=== PATIENT | female | born 1965 | race Caucasian/White ===

== ENCOUNTER 2020-01-20 18:53 | Outpatient (NON) | payer BC, SELFPAY | END 2020-01-20 18:54 | PROVIDERS: Visit Provider Nurse Practitioner | DX: L02.91 Cutaneous abscess, unspecified (principal) | CPT/HCPCS: 87070; 87075; 87076; 87205 ==

== ENCOUNTER → 2020-04-13 12:41 | Outpatient (REF) | payer BC, SELFPAY | LOC: ANHLAB 12:41 | PROVIDERS: Visit Provider Nurse Practitioner | DX: L72.0 Epidermal cyst (principal) | CPT/HCPCS: 88304 ==

== ENCOUNTER → 2020-07-13 16:41 | Outpatient (CLI) | payer BC, SELFPAY ==
--- NOTE | ~2020-07-13 | MM_ITS ---
EXAMINATION: MM screening [facility] BI w red HISTORY: Screening TECHNIQUE: Craniocaudal and mediolateral oblique 3-D tomosynthesis images were obtained and synthetic 2-D images were generated. CAD analysis was submitted and interpreted. COMPARISON: Comparison to multiple prior studies sequentially, with oldest reviewed study dated 08/2013. BREAST PARENCHYMAL COMPOSITION: There are scattered areas of fibroglandular density. FINDINGS: There is no evidence of suspicious mass, calcification, or architectural distortion to sugg est malignancy in either breast. There has been no suspicious interval change. IMPRESSION: 1. No mammographic evidence of malignancy. 2. Recommend routine screening mammography in one year. BI-RADS Category 1: Negative Reviewed, dictated and finalized at location A.
== END ==
PROVIDERS: PCP Physician Assistant; Visit Provider Obstetrics & Gynecology Gynecology
DX: Z12.31 Encounter for screening mammogram for malignant neoplasm of breast (principal)
CPT/HCPCS: 77063; 77067

== ENCOUNTER → 2021-09-19 16:35 | Outpatient (CLI) | payer BC, SELFPAY ==
--- NOTE | ~2021-09-19 | MM_ITS ---
EXAMINATION: MM screening [facility] BI w red HISTORY: Screening TECHNIQUE: Craniocaudal and mediolateral oblique 3-D tomosynthesis images were obtained and synthetic 2-D images were generated. CAD analysis was submitted and interpreted. COMPARISON: Comparison to multiple prior studies sequentially, with oldest reviewed study dated 06/23. BREAST PARENCHYMAL COMPOSITION: There are scattered areas of fibroglandular density. FINDINGS: There is no evidence of suspicious mass, calcification, or architectural distortion to sugg est malignancy in either breast. There has been no suspicious interval change. IMPRESSION: 1. No mammographic evidence of malignancy. 2. Recommend routine screening mammography in one year. BI-RADS Category 1: Negative Reviewed, dictated and finalized at location A.
== END ==
PROVIDERS: PCP Physician Assistant; Visit Provider Obstetrics & Gynecology Gynecology
DX: Z12.31 Encounter for screening mammogram for malignant neoplasm of breast (principal)
CPT/HCPCS: 77063; 77067

== ENCOUNTER 2022-10-23 08:25 | Outpatient (CLI) | payer BC, SELFPAY ==
--- NOTE | ~2022-10-23 | MM_ITS ---
EXAMINATION: MM screening [facility] BI w red HISTORY: Screening mammogram TECHNIQUE: Craniocaudal and mediolateral oblique 3-D tomosynthesis images were obtained and synthetic 2-D images were generated. CAD analysis was submitted and interpreted. COMPARISON: 09/19/2021, 07/13/2020, 01/09/2019 bilateral screening mammogram examinations BREAST PARENCHYMAL COMPOSITION: There are scattered areas of fibroglandular density. FINDINGS: There is no evidence of suspicious mass, calcification, or architectural distortion to sugg est malignancy in either breast. There has been no suspicious interval change. IMPRESSION: 1. No mammographic evidence of malignancy. 2. Recommend routine screening mammography in one year. BI-RADS Category 1: Negative........ Reviewed, dictated and finalized at location A.
--- NOTE | ~2022-10-23 | DEXA_ITS ---
Bone Density Report Name: PAMELA WILL Age: 57 Sex: Female Ethnicity: White Date of : 1965 Indication: postmenopausal; screening for osteoporosis; height loss; Referring Provider: Radha Enriquez Study: Bone densitometry was performed. Exam Date: October 23, 2022 Accession number: [id number] Bone Density: Region BMD T-score Z-score Classification AP Spine(L1-L4) 0.920 -1.2 0.0 Osteopenia Femoral Neck (Left) 0.829 -0.2 0.9 Normal Total Hip (Left) 0.861 -0.7 0.0 Normal Femoral Neck (Right) 0.775 -0.7 0.4 Normal Total Hip (Right) 0.881 -0.5 0.2 Normal Femoral Neck Mean 0.802 -0.4 0.7 Normal Total Hip Mean 0.871 -0.6 0.1 Normal World Health Organization criteria for BMD impression classify patients as: Normal (T-score at or above -1.0), Osteopenia (T-score between -1.0 and -2.5), or Osteoporosis (T-score at or below -2.5). 10-year Fracture Risk(1): Major Osteoporotic Fracture 5.7% Hip Fracture 0.2% Reported Risk Factors: [place] (), Neck BMD=0.775, BMI=26.9 (1) FRAX(R) Version 3.08. Fracture probability calculated for an untreated patient. Fracture probability may be lower if the patient has received treatment. Clinical Information Provided by Patient: Has used the following medications: Vitamin D Patient maximum height was 70 Menopause Age: 57 Drinks caffeinated beverages Onset of menses at age 16 Number of children 0 Impression: The patient has low bone mass, based on the Total Spine T-score. Discussion: BONE DENSITY IS LOW AT ONE OR MORE SKELETAL SITES. This patient's lowest T-score is low at one or more skeletal sites. It meets the World Health Organization's (WHO) criteria for ?low bone mass? (T-score between -1.0 and -2.5). The patient's 10-year risk of fracture as calculated by FRAX is less than the threshold where pharmacological therapy is recommended by the National Osteoporosis Foundation (NOF). However, all treatment decisions require clinical judgment and consideration of individual patient factors, including patient preferences, comorbidities, previous drug use, risk factors not captured in the FRAX model (e.g., frailty, falls, vitamin D deficiency, increased bone turnover, interval significant decline in bone density) and possible under or overestimation of fracture risk by FRAX. The patient should follow a healthful lifestyle (good nutrition with adequate calcium and vitamin D, and appropriate weight-bearing exercise). Follow-Up: Consider repeating this study in 2 to 3 years to reassess this patient's status, or sooner if there is some new clinical indication. Reported by: Dr. Floyd Olguin on 10/23/2022 9:11:00 AM. Reviewed, dictated and finalized at location A.
== END 2022-10-23 08:26 | disposition home or self-care (01) ==
LOC: CHSIMG 08:26
PROVIDERS: PCP Physician Assistant; Visit Provider Obstetrics & Gynecology Gynecology
DX: Z12.31 Encounter for screening mammogram for malignant neoplasm of breast (principal); Z78.0 Asymptomatic menopausal state; M85.88 Other specified disorders of bone density and structure, other site
CPT/HCPCS: 77063; 77067; 77080

== ENCOUNTER 2023-04-11 18:19 | Outpatient (CLI) | payer BC, SELFPAY ==
--- NOTE | ~2023-04-11 | XR_ITS ---
EXAMINATION: XR foot RT min 3V DATE: 04/11/2023 18:45 INDICATION: Lateral right foot pain. TECHNIQUE: 4 views of right foot were obtained. COMPARISON: None. FINDINGS: There is moderate hallux valgus. There is an oblique fracture of neck of fifth metatarsal. The distal fracture fragment demonstrates 5 degrees plantar medial angulation. There is mild osteoart hritis of first metatarsophalangeal joint. There is an enthesophyte at plantar aspect of calcaneal tu berosity. IMPRESSION: 1. Oblique fracture of neck of fifth metatarsal. Reviewed, dictated and finalized at location E. 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
== END 2023-04-11 18:20 | disposition home or self-care (01) ==
LOC: CHSIMG 18:24
PROVIDERS: PCP Physician Assistant; Visit Provider Physician Assistant
DX: S92.351A Displaced fracture of fifth metatarsal bone, right foot, initial encounter for closed fracture (principal)
CPT/HCPCS: 73630

== ENCOUNTER 2023-12-21 12:21 | Outpatient (CLI) | payer BC, SELFPAY ==
--- NOTE | ~2023-12-21 | MM_ITS ---
EXAMINATION: MM screening [facility] BI w red HISTORY: Screening TECHNIQUE: Craniocaudal and mediolateral oblique 3-D tomosynthesis images were obtained and synthetic 2-D images were generated. CAD analysis was submitted and interpreted. COMPARISON: Comparison to multiple prior studies sequentially, with oldest reviewed study dated 10/18. BREAST PARENCHYMAL COMPOSITION: Not Dense: The breasts are almost entirely fatty. FINDINGS: There is no evidence of suspicious mass, calcification, or architectural distortion to sugg est malignancy in either breast. There has been no suspicious interval change. IMPRESSION: 1. No mammographic evidence of malignancy. 2. Recommend routine screening mammography in one year. BI-RADS Category 1: Negative Reviewed, dictated and finalized at location B.
== END 2023-12-21 12:22 | disposition home or self-care (01) ==
LOC: CHSIMG 12:23
PROVIDERS: PCP Physician Assistant; Visit Provider Obstetrics & Gynecology Gynecology
DX: Z12.31 Encounter for screening mammogram for malignant neoplasm of breast (principal)
CPT/HCPCS: 77063; 77067

== ENCOUNTER 2025-01-05 14:00 | Outpatient (CLI) | payer BC, SELFPAY ==
--- NOTE | ~2025-01-05 | MM_ITS ---
EXAMINATION: MM screening shelton BI w red HISTORY: Screening TECHNIQUE: Craniocaudal and mediolateral oblique 3-D tomosynthesis images were obtained and synthetic 2-D images were generated. CAD analysis was submitted and interpreted. COMPARISON: 09/19/2021 BREAST PARENCHYMAL COMPOSITION: There are scattered areas of fibroglandular density. FINDINGS: There is no evidence of suspicious mass, calcification, or architectural distortion to suggest malignancy. There has been no suspicious interval change. IMPRESSION: 1. No mammographic evidence of malignancy. Recommend routine screening mammography in one year. BI-RADS Category 2: Benign finding(s) Reviewed, dictated and finalized at location Q. IMPRESSION: 1. No mammographic evidence of malignancy. Recommend routine screening mammogra phy in one year. BI-RADS Category 2: Benign finding(s)
--- OUTSIDE RECORDS SUMMARY | 2025-01-05 15:11 | XMS_ITS | Data Portability ---
Author Organization [place] [facility], Main Office Address [address] [place] [address] Care Team Providers Care Piping Manager Name Role Phone COURTNEY KRAUSE Primary Care Provider [phone] COURTNEY KRAUSE Referring Provider [phone] Assessment Encounter Date Assessment Date Assessment LastModified by Organization Details LastModified Time 05/30/2023 05/30/2023 58-year-old female presents for evaluation of her left knee. She reports pain in her knee which began last month. She denies any injuries, but says that she was wearing a boot for a fracture in her right foot, and walking in that for a while caused her left knee to have pain. she also recently fitted for orthotics, and feels like that aggravated her symptoms as well. She has pain with movement and walking. She feels like it there is swelling, stiffness, and also clicking. The pain is located over the anterior aspect of the knee. She went to urgent care and got a course of oral steroids, but otherwise has not had any treatments. She currently rates her pain 6/10. Review of systems per patient questionnaire Physical exam: She is antalgic gait favoring the left side. Tenderness palpation over the anterior knee and also medially. Range of motion 0-120. 2+ effusion. Negative Libby's. Stable Dayo, posterior drawer, varus and valgus stress. X-rays of the knee were obtained and reviewed, demonstrating preserved joint space with very small peripheral osteophytes For her knee pain, we will begin with a course of conservative management with meloxicam, Voltaren topically, and physical therapy. She is inquiring about a cortisone injection because she has a trip coming up next month. We discussed that we would try conservative management 1st and can consider cortisone as a next step if she fails to improve. If that is the case, we can see her back in June prior to her trip to discuss a cortisone injection. She is in agreement with the plan. [email or web address] Not available 05/30/2023 21:00:33 06/19/2023 06/19/2023 58-year-old female presents for re-evaluation of her left knee. She reports pain in her knee which began last month after wearing a boot for a fracture in her right foot. At her last appointment we order physical therapy and meloxicam. She states today that the knee feels like it is getting better but she is still experiencing pain and stiffness. She has a trip coming up and is worried about the amount of walking she will be doing. Physical exam: Nonantalgic gait. Tenderness palpation over the anterior knee. Range of motion 0-140. 1+ effusion. Negative Libby's. Stable Dayo, posterior drawer, varus and valgus stress. Today we discussed the risks and benefits of a cortisone injection. She elected to proceed with the injection today. She plans to complete her last few therapy sessions. We discussed continuing the exercises at home once she is done. We can see her back as needed for pain. [email or web address] Not available 06/19/2023 09:14:09 Plan of Treatment Reminders Order Date Submit Date Provider Last Modified By Organization Details Last Modified Time Details Appointments None recorded. Lab lipid panel, serum 2022 024 [email or web address] [facility], 2022 [address], [place], [address], 18:34:15 CBC w/ auto diff 2022 024 [email or web address] [facility], 2022 Lisa [address], [place], [address], 4 18:34:15 CMP, serum or plasma 2022 024 [email or web address] [facility], 2022 Lisa [address], [place], [address], 4 18:34:15 HbA1c (hemoglobin A1c), blood 2022 024 [email or web address] [facility], 2022 [address], [place], [address], 4 18:34:15 TSH + free T4, serum 2022 024 [email or web address] [facility], 2022 Lisa [address], [address], [place], [address], 4 18:34:14 lipid panel, serum 2022 023 [facility], 2022 Lisa Carolina, [address], [place], [address], 3 08:30:48 TSH + free T4, serum 2022 023 [facility], 2022 Lisa Carolina, [address], [place], [address], 3 08:30:48 Referral physical therapist referral 2023 024 [facility], [address], [place], [address], 4 10:50:30 Procedures injection/a spiration joint/bursa (PROC) - in office procedure, administere d by provider 2023 024 [email or web address] In-Office Order, Internal Use Only DO Not Attach Compendium DO Not Attach Compendium, Do Not Delete/merge, [id number] 09:13:05 Surgeries None recorded. Imaging None recorded. Medication Orders Kenalog 10 mg/mL suspension for injection 2023 024 [email or web address] [facility] [address], [place], [address], 4 11:16:08 Marcaine (PF) 0.5 % (5 mg/mL) injection solution 2023 024 [email or web address] [facility] [address] [place], [address], 4 11:16:08 Mobic 15 mg tablet 2023 024 [email or web address] [facility] [address] [place], [address], 4 21:00:34 Patient TargetsNo targets recorded. Patient InstructionsNo instructions recorded. Reason for Referral Physical Therapist Referral for Pain of left knee joint Referring Physician: Torsten Osman, Orthopedic Surgery, Encounter Date: 05/30/2023 Results Created Date Observation Date Name Description Value Unit Range Abnormal Flag Note LastModifiedBy Organization Detail LastModifiedTime 12/27/1910/23/2022 MAMMO , scree josué, digit al, bilat eral No observ ation record ed. [email or web address] [facility] [address] [place], [address], 12/27/2022 15:28:47 04/12/19 24 04/12/2023 XR, foot, 3 or more view No observ ation record ed. [email or web address] [facility] [address] [place], [address], 04/12/2023 10:40:58 05/16/19 24 05/15/2023 XR, foot, 3 or more view No observ ation record ed. [email or web address] [facility] [address] [place], [address], 06/25/2023 12:49:56 Result Notes None recorded. Problems Name Problem SNOMED Code Status Onset Date Resolution Date Notes Provider Name and Address Organization Details Recorded Time Benign essential hypertensi on 7691089 Active Not Available [facility] 3 06:04:09 Body mass index 25-29 - overweight 278979359 Active Not Available [facility] 3 06:04:09 Lateral epicondyli tis 218115447 Active Not Available [facility] 3 06:04:09 Wasp sting 201486595 Active Not Available [facility] 3 06:04:09 Vitamin D deficiency 07846225 Active Not Available [facility] 3 06:04:10 Pain of hip region 04727830 Active Not Available [facility] 3 06:04:10 Hyperlipid emia 02318863 Active Not Available [facility] 3 06:04:10 Diabetes mellitus screening Active 2021 Not Available [facility] 3 06:04:09 Long-term drug therapy Active 2021 Not Available [facility] 3 06:04:09 Adult health examinatio n Active 2021 Not Available [facility] 3 06:04:09 Overactive urinary bladder 846580807 Active 2021 Not Available [facility] 3 06:04:10 Acute sinusitis 98903922 Active 2021 Not Available [facility] 3 06:04:09 Pain of bilateral hands 1212451563336 9109 Active 2021 Not Available [facility] 3 06:04:09 Carpal tunnel syndrome of right wrist 8086921175700 08 Active 2021 Not Available [facility] 3 06:04:10 Mixed hyperlipid emia 904420208 Active 2022 KEVIN Shelton [address], [address], [place], [address] , [employer] 3 17:32:18 Thyroid function tests abnormal 742650188 Active 2022 KEVIN Shelton [address], [address], [place], [address] , [employer] [facility] [employer] 3 17:32:36 Weight gain 7422038 Active 2022 KEVIN Shelton [address], [place], [address] , [facility] [employer] [facility] 3 16:53:11 Injury of right foot 351282925 Active 2023 KEVIN Shelton [address] [facility], [place] [address], [place], [address] , [facility] [employer] [facility] 4 12:34:56 Closed fracture of fifth metatarsal bone 26752792 Active 2023 KEVIN Shelton [address] [facility], [place] [address], [place], [address] , [facility] [employer] [facility] 4 10:42:18 Pain of left knee joint 5033671384553 07 Active 2023 Becky Valdivia, ROCKY L null, [facility] [employer] [facility] 4 15:25:58 Problem Notes None recorded. Procedures Surgical History Date Name Laterality Status Provider Name and Address Organization Details Recorded Time Ortho - Cortisone Injection completed Kira Rivera NP [address] [facility], [place] [address], [place], [address], [facility] [employer] [facility] [employer] [facility] 06/19/2023 09:14:53 Imaging Results None recorded. Procedure Notes None recorded. Medical Equipment None Reported. Allergies No known drug allergies Medications Name Sig Start Date Stop Date Status Note LastModified by Organization Details LastModified Time celecoxib 200 mg capsule TAKE 1 CAPSULE BY MOUTH ONCE DAILY active Not Available Not Available No t Available Augmentin 875 mg-125 mg tablet Take 1 tablet every 12 hours by oral route with meals. active Not Available Not Available No t Available ibuprofen 800 mg tablet Take 1 tablet twice a day by oral route as needed. 05/29 completed Not Available Not Available Not Available fluconazol e 150 mg tablet TAKE ONE TABLET BY MOUTH A ONE-TIME DOSE. MAY REPEAT IF NEEDED. 05/29 completed Not Available Not Available Not Available medroxypro gesterone 2.5 mg tablet TAKE 1 TABLET BY MOUTH ONCE DAILY active Not Available Not Available No t Available meloxicam 15 mg tablet TAKE 1 TABLET BY MOUTH ONCE DAILY active Not Available Not Available No t Available phentermin e 37.5 mg tablet TAKE 1 TABLET BY MOUTH ONCE DAILY IN THE MORNING 05/29 completed Not Available Not Available Not Available ciprofloxa sheri 500 mg tablet Take 1 tablet every 12 hours by oral route. active Not Available Not Available No t Available sulfametho xazole 800 mg-trimeth oprim 160 mg tablet Take 1 tablet every 12 hours by oral route. 01/30 completed Not Available Not Available Not Available amoxicilli n 875 mg tablet TAKE 1 TABLET BY MOUTH EVERY 12 HOURS active Not Available Not Available No t Available Kenalog 10 mg/mL suspension for injection Take 1 mL by injectio n route. 2023 active [facility]: [phone] Not Available Not Available Not Available cephalexin 500 mg capsule active Not Available Not Available Not Available lisinopril 10 mg tablet active Not Available Not Available Not Available hydrochlor othiazide 12.5 mg capsule TAKE 1 CAPSULE BY MOUTH ONCE DAILY active Not Available Not Available No t Available oxybutynin chloride ER 5 mg tablet,ext ended release 24 hr Take 1 tablet every day by oral route. 05/29 completed pt doesnt take Not Available Not Available Not Available norgestima te-ethinyl estradiol 0.18mg/0.2 15mg/0.25m g-0.035mg( 28)tablet active Not Available Not Available No t Available montelukas t 10 mg tablet Take 1 tablet every day by oral route. 12/14 completed Not Available Not Available Not Available estradiol 0.5 mg tablet TAKE 1 TABLET BY MOUTH ONCE DAILY active Not Available Not Available No t Available ergocalcif terrie (vitamin D2) 1,250 mcg (50,000 unit) capsule TAKE ONE CAPSULE BY MOUTH THREE TIMES A MONTH active Not Available Not Available No t Available methylpred nisolone 4 mg tablets in a dose pack TAKE BY MOUTH DIRECTED ON INSIDE OF PACKAGE 05/29 completed Not Available Not Available Not Available Marcaine (PF) 0.5 % (5 mg/mL) injection solution Take 4 mL by injectio n route. 2023 active Not Available Not Available Not Avai lable nitrofuran toin monohydrat e/macrocry stals 100 mg capsule Take 1 capsule every 12 hours by oral route. 04/22 completed Not Available Not Available Not Available Vesicare 5 mg tablet Take 1 tablet every day by oral route. 10/28 completed Not Available Not Available Not Available BD Ultra-Fine Short Pen Needle 31 gauge x 5/16 USE 1 ONCE DAILY DIRECTED 05/29 completed Not Available Not Available Not Available Voltaren 1 % topical gel APPLY 2 GRAM TO THE AFFECTED AREA(S) BY TOPICAL ROUTE 4 TIMES PER DAY PRN pain active Not Available Not Available No t Available Myrbetriq 25 mg tablet,ext ended release Take 1 tablet every day by oral route. 10/25 completed Not Available Not Available Not Available Estarylla 0.25 mg-0.035 mg tablet 08/15 completed Not Available Not Available Not Available Saxenda 3 mg/0.5 mL (18 mg/3 mL) subcutaneo us pen injector INJECT 0.6 MG SUB-Q DAILY ON WEEK 1, INJECT 1.2 MG SUB-Q DAILY ON WEEK 2, THEN INJECT 1.8 MG SUB-Q DAILY ON WEEK 5, THEN 3 MG SUB-Q DAILY ONWARD 12/18 completed Not Available Not Available Not Available Fluvirin (PF) 45 mcg (15 mcg x 3)/0.5 mL intramuscu lar syringe ADM 0.5ML IM UTD 05/24 completed Not Available Not Available Not Available Belviq XR 20 mg tablet,ext ended release Take 1 tablet every day by oral route. 08/31 completed Not Available Not Available Not Available Flucelvax Quad (PF) 60 mcg (15 mcg x 4)/0.5 mL IM syringe 05/05 completed Not Available Not Available Not Available Wegovy 1.7 mg/0.75 mL subcutaneo us pen injector INJECT 1.7 MG EVERY WEEK SUB-Q DIRECTED . 05/29 completed Not Available Not Available Not Available Wegovy 0.25 mg/0.5 mL subcutaneo us pen injector INJECT 0.25 MG SUB-Q ONCE WEEKLY. 12/18 completed Not Available Not Available Not Available Wegovy 0.5 mg/0.5 mL subcutaneo us pen injector Inject 0.5 mg every week by subcutan eous route as directed . 12/18 completed Not Available Not Available Not Available Flowflex COVID-19 Antigen Home Test kit 10/24 completed Not Available Not Available Not Available Zepbound 2.5 mg/0.5 mL subcutaneo us pen injector INJECT 2.5 MG SUB-Q EVERY WEEK. active Not Available Not Available No t Available Vitals Date Recorded Body height Body mass index (BMI) Body weight Provider Name and Address Organization Details Last Updated DateTime 05/30/2023 175.26 cm 26.6 kg/m2 97918.63 g Becky Valdivia [facility] [employer] [facility] 05/30/2023 15:23:19 Date Recorded Body height Body mass index (BMI) Body weight Body temperature Heart rate Oxygen saturation Oxygen saturation in Arterial blood by Pulse oximetry Systolic And Diastolic Provider Name and Address Organization Details Last Updated DateTime 175.26 cm 27.3 kg/m2 67934.5 9 g 97.8 [degF] 77 /min 98 % 98 % 122/72 mm[Hg] Deborah Alvarez RN [facility] 17:10:06 Date Recorded Body height Body mass index (BMI) Body weight Pain severity - 0-10 verbal numeric rating [Score] - Reported Provider Name and Address Organization Details Last Updated DateTime 06/19/2023 175.26 cm 17.7 kg/m2 66639.08 g 3 UMESH [place] [employer] [facility] 06/19/2023 08:57:35 Date Recorded Body mass index (BMI) Provider Name and Address Organization Details Last Updated DateTime 12/18/2022 26.3 kg/m2 KEVIN Shelton [address] [place] [address], [address], [facility] 12/24/2022 01:11:02 Date Recorded Body height Body weight Body temperature Heart rate Oxygen saturation Oxygen saturation in Arterial blood by Pulse oximetry Systolic And Diastolic Provider Name and Address Organization Details Last Updated DateTime 175.26 cm 97769.4 4 g 97.3 [degF] 88 /min 97 % 97 % 110/62 mm[Hg] Deborah Alvarez RN [facility] Dheere Bolo [facility] 17:09:36 Date Recorded Body height Oxygen saturation Oxygen saturation in Arterial blood by Pulse oximetry Heart rate Body temperature Body weight Systolic And Diastolic Provider Name and Address Organization Details Last Updated DateTime 2 175.26 cm 99 % 99 % 83 /min 97 [degF] 50601 g 118/72 mm[Hg] Not Available [employer] 3 06:01:28 Social History Question Answer Notes LastModified by Organizat ion Details LastModified Time Tobacco Smoking Status Never Smoker UMESH Prince null, [place] [facility] [place] [employer] [facility] 12/18/2022 17:05:33 What Is Your Level Of Caffeine Consumption? Occasional [id number] Information not available 05/24/2022 In The 14 Days Before Symptom Onset, Have You Had Close Contact With A Laboratory-confirm ed COVID-19 While That Case Was Ill? No [email or web address] Information n ot available 12/18/2022 In The 14 Days Before Symptom Onset, Have You Had Close Contact With A Person Who Is Under Investigation For COVID-19 While That Person Was Ill? No [email or web address] Information not available 12/18/2022 What Type Of Diet Are You Following? REGULAR [id number] Information not available 05/24/2022 What Is The Highest Grade Or Level Of School You Have Completed Or The Highest Degree You Have Received? [id number] [email or web address] Information not available 12/18/2022 Have There Been Any Changes To Your Family Or Social Situation? No [email or web address] Information no t available 12/18/2022 Do You Use Insect Repellent Routinely? No [email or web address] Information not available 12/18/2022 What Was The Date Of Your Most Recent Tobacco Screening? 06/19/2023 Information not available 06/19/2023 Have You Ever Been Counseled For Unhealthy Alcohol Use? No [email or web address] Information not available 12/18/2022 What Is Your Relationship Status? Single [id number] Information not available 05/24/2022 Do You Use Your Seat Belt Or Car Seat Routinely? Yes [email or web address] Information not available 12/18/2022 Do You Have Smoke And Carbon Monoxide Detectors In Your Home? Yes [email or web address] Information not available 12/18/2022 Do You Use Sunscreen Routinely? Yes [email or web address] Information not available 12/18/2022 Has Tobacco Cessation Counseling Been Provided? No [email or web address] Information not available 12/18/2022 Have You Recently Traveled Abroad? No Information not available 12/18/2022 Do You Have Any Dietary Restrictions? No Information not available 12/18/2022 Sex: Unknown Functional Status Question Answer Note LastModified by Organizat ion Details LastModified Time Do you use any illicit or recreational drugs? No [email or web address] Information not available 12/18/2022 Do you or have you ever used any other forms of tobacco or nicotine? No Information not available 12/18/2022 What is your level of alcohol consumption? Occasional [id number] Information not available 05/24/2022 Are you currently employed? 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 Moderate [id number] Information not available 05/24/2022 Mental Status None recorded. Family History Relationship Description Onset Age of this Age Resolved Age Notes LastModified by Organization Details LastModified Time Mother Neoplasm of appendix [email or web address] Not available 2023 15:06:57 Mother Hypertensive disorder [email or web address] Not available 08/2023 15:25:29 Father Aneurysm 70 [email or web address] Not availabl e 05/30/2023 15:06:57 Father Family history of stroke [email or web address] Not available 08/2023 15:25:15 Father Hypertensive disorder [email or web address] Not available 08/2023 15:25:29 Father Myocardial infarction 70 [id number] Not available 05/24/2022 05:57:08 Medical History Condition Response HEADACHES/MIGRAINES Y URINARY/BLADDER/KIDNEY PROBLEMS Y HEARTBURN / REFLUX Y HYPERTENSION Y HIGH CHOLESTEROL / HYPERLIPIDEMIA Y Gynecological History Statement/Question Response Menses Monthly N Date of Last Pap 05/27/2018 Date of Last Mammogram 10/24/2017 Current Control Method None Date of LMP 08/24/2020 Sexually Active? Y Obstetrics History GPAL:G 0 P 0 0 0 0 Immunizations Vaccine Type Date Status Note Provider Nam e and Address Organization Details Recorded Time influenza, unspecified formulation 0 completed Not Available [facility] 05/24/2022 06:09:35 influenza, unspecified formulation 2 completed Not Available [facility] 05/24/2022 06:09:35 influenza, unspecified formulation 6 completed Not Available [facility] 05/24/2022 06:09:35 influenza, unspecified formulation 5 completed Not Available [facility] 05/24/2022 06:09:35 Past Encounters Encounter ID Performer Location Encounter Start Date Encounter Closed Date Diagnosis/Indication Diagnosis SNOMED-CT Code Diagnosis ICD10 Code Diagnosis IMO Codes Diagnosis Note [id number] KEVIN Shelton [facility] [place] [address] [place] [address] 10/21/2020 00:00:00 10/21/2020 18:19:13 [id number] KEVIN Shelton [facility] [place] [address] [place] [address] 04/25/2021 00:00:00 04/25/2021 16:58:12 [id number] Tyshawn Guardado MD [facility] [place] [address] [place] [address] 10/24/2021 00:00:00 11/23/2021 19:24:28 [id number] KEVIN Shelton [facility] [place] [address] [place] [address] 02/22/2022 00:00:00 02/22/2022 13:45:12 [id number] KEVIN Shelton [facility] [place] [address] [place] [address] 06/12/2022 17:03:34 06/12/2022 17:39:53 Benign essential hypertension 2143530 I10 stable on hctz 12.5mg daily and lisinopril 10mg daily. Mixed hyperlipidemia 267 172504 E78.2 diet control, due for repeat labs in july Overactive urinary bladder 954550707 N32.81 pt has not been taking the oxybutynin that was given prior Long-term drug therapy 312280594 Z79.899 Thyroid fu nction tests abnormal 953023407 R94.6 following TSH levels. repeat labs in july KEVIN Shelton [facility] [place] [address] [place] [address] 12/18/2022 17:05:23 12/18/2022 17:38:08 Benign essential hypertension 3961641 I10 stable on hctz 12.5mg daily and lisinopril 10mg daily. Mixed hyperlipidemia 267 236262 E78.2 diet control, due for repeat labs in may Thyroid fu nction tests abnormal 762459677 R94.6 following TSH levels. repeat labs in may Overactive urinary bladder 282945985 N32.81 pt has not been taking the oxybutynin that was given prior Long-term drug therapy 081617950 Z79.899 Adult heal th examination 821867708 Z00.01 well exam completed Diabetes m ellitus screening 361783826 Z13.1 [id number] Torsten Osman MD [facility] [place] [address] [place] [address] 05/30/2023 15:04:54 05/30/2023 15:58:19 Pain of left knee joint 4678660453 52263 M25.470 [id number] Torsten Osman MD [facility] [place] [address] [place] [address] 06/19/2023 08:54:03 06/19/2023 09:34:36 Pain of left knee joint 3587873627 69246 M25.562 Health Concerns Section Related Observation LastModified by Organization Detai ls LastModified Time None Recorded Concern Status LastModified by Organization Details LastModified Time None Recorded Advance Directives Directive None Recorded Payers Insurance Date Sequence Insurance Name Policy Number Policy Chinchilla Covered Member ID Chinchilla Member ID Guarantor Name 05/30/2023 [facility] Kylah Hawkins SELF SELF Kylah Hawkins 06/25/2023 1 [place] [id number] R Kylah Hawkins [id number] Kylah Hawkins Notes Date Note Type Note Provider Name and Address Organization Details Recorded Time 3 text/html HyperlipidemiaReported by PatientHPIFor control, patient reportsusually well controlled,improving, andat goal. For compliance, patient reportscompliant,compliant with diet, andexercises. For complications, patient reportsno coronary artery disease,no peripheral artery disease, andno cardiovascular disease. HypothyroidismReported by PatientHPIFor onset/timing, patient reportsbetter. For context/risk, patient reportsnormal thyroid levels,no history of head or neck radiation during childhood,no history of thyroid disease,no history of hypothyroidism,no history of hyperthyroidism, andno excess iron exposure. For exercise, patient reportsgets exercise. For associated symptoms, patient reportsno cold intolerance,no heat intolerance,no weight loss,no weight gain,no double vision,no dry eyes,no hoarseness,no difficulty swallowing,no neck masses,no deepening of the voice,no fast heart rate,no increased blood pressure,no palpitations,no chest pain,no chest tightess or pressure,no constipation,no diarrhea,no vomiting,no decreased appetite,no loose stools,no irregular menstrual periods,no excessive sweating,no joint pain,no numbness,no tingling of the hands or feet,no dry skin,no tremor,no nervousness,no anxiety,no depression,no fatigue,no sleep difficulties,no skin changes, andno hair changes. KEVIN Shelton [address] [place] [address], [id number], [place] [facility] [employer] 06/23/2022 10:43:50 3 text/html HyperlipidemiaReported by PatientHPIFor control, patient reportsusually well controlled,improving, andat goal. For compliance, patient reportscompliant,compliant with diet, andexercises. For complications, patient reportsno coronary artery disease,no peripheral artery disease, andno cardiovascular disease. HypothyroidismReported by PatientHPIFor onset/timing, patient reportsbetter. For context/risk, patient reportsnormal thyroid levels,no history of head or neck radiation during childhood,no history of thyroid disease,no history of hypothyroidism,no history of hyperthyroidism, andno excess iron exposure. For exercise, patient reportsgets exercise. For associated symptoms, patient reportsno cold intolerance,no heat intolerance,no weight loss,no weight gain,no double vision,no dry eyes,no hoarseness,no difficulty swallowing,no neck masses,no deepening of the voice,no fast heart rate,no increased blood pressure,no palpitations,no chest pain,no chest tightess or pressure,no constipation,no diarrhea,no vomiting,no decreased appetite,no loose stools,no irregular menstrual periods,no excessive sweating,no joint pain,no numbness,no tingling of the hands or feet,no dry skin,no tremor,no nervousness,no anxiety,no depression,no fatigue,no sleep difficulties,no skin changes, andno hair changes. wellness KEVIN Shelton [address], [place] [address], [place], [address], [facility] 12/24/2022 01:12:06 OBGyn Episode No OBEpisode recorded.
--- OUTSIDE RECORDS SUMMARY | 2025-01-05 15:11 | XMS_ITS | Patient Health Record ---
Author Organization [facility] Address [address] [place], [place] [id number] Support Name Relationship Address Phone TIARA WILL Emergency Contact Unknown PAMELA WILL Guarantor Unknown [phone] Reason For Referral No Information Plan Of Treatment No Information Insurance Providers Payer Name Payer Address Payer Phone Subscriber Number Group Number Insured Name Patient Relationship to Insured Coverage Start Date Coverage End Date [facility] ([facility]) ATTN CLAIMS [address] [place] [address] [id number] PAMELA WILL Self - patient is the insured
--- OUTSIDE RECORDS SUMMARY | 2025-01-05 15:11 | XMS_ITS | Clinical Summary ---
Author Organization [facility] Address [address] [place] [address] Care Team Providers Care Foreign Language Instructor Name Role Phone Mojgan Rick Primary Care Pr ovider Source Comments [facility] [employer]non-owned Affiliates and Associated Physician Practices is amultiple site organization consisting of ambulatory clinics and hospital sitesin [place], [place], [place] and [place]. This disclosure is being madepursuant to the Care Everywhere program and may not contain all information available regarding this patient. Last updated 17.[facility] [employer] Allergies No known active allergies Medications * Be aware that medications may not be up to date on this document. Alwaysverify current medications with the patient. hydroCHLOROthia zide (Microzide) 12.5 MG capsule Take 1 (one) capsule by mouth once daily 07/19/2022 Active lisinopril (Prinivil; Zestril) 10 MG tablet Take 1 (one) tablet by mouth once daily 09/16/2022 Active vitamin D, ergocalciferol, (Drisdol) 1.25 MG (73219 UT) capsule Take 1 (one) capsule by mouth as directed Take one capsule 3 times monthly. 12/10/2022 Active Active Problems Problem Noted Date Diagnosed Date Benign essential hypertension 01/15/2023 Hip pain 01/15/2023 01/15/2023 Lateral epicondylitis 01/15/2023 01/15/2023 Overweight with body mass index (BMI) 25.0-29.9 01/15/2023 01/15/2023 Vitamin D deficiency 01/15/2023 01/15/2023 Wasp sting 01/15/2023 01/15/2023 Weight gain 07/18/2022 01/15/2023 Mixed hyperlipidemia 06/12/2022 01/15/2023 Thyroid function test abnormal 06/12/2022 1 Carpal tunnel syndrome of right wrist 02/21/2022 01/15/2023 Pain in both hands 01/29/2022 01/15/2023 Overactive bladder 10/24/2021 01/15/2023 Resolved Problems Problem Noted Date Diagnosed Date Resolved Date Acute sinusitis 01/04/2022 01/15/2023 02/12/2023 Family History Medical History Relation Name Comments CVA Father High Cholesterol Mother Relation Name Status Comments Father Mother Social History Tobacco Use Types Packs/Day Years Used Date Smoking Tobacco: Never Passive Smoke Exposure: Past Smokeless Tobacco: Never Tobacco Cessation:Counseling Given: Not Answered Alcohol Use Standard Drinks/Week Comments Yes 2 (1 standard drink = 0.6 oz pur e alcohol) Comments No Sex and Gender Information Value Date Recorded Sex Assigned at Not on file 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 Gender Identity Not on file Sexual Orientation Not on file Last Filed Vital Signs Vital Sign Reading Time Taken Comments Blood Pressure 112/72 01/15/2023 3:25 PM CDT Pulse - - Temperature - - Respiratory Rate - - Oxygen Saturation - - Inhaled Oxygen Concentration - - Weight 80.5 kg (177 lb 6.4 oz) 01/15/2023 3:25 P M CDT Height 175.3 cm (5' 9.02) 01/15/2023 3:25 PM CD T Body Mass Index 26.19 01/15/2023 3:25 PM CDT Plan of Treatment Health Maintenance Due Date Last Done Comments COLON MONITORING 1967 COLONOSCOPY - COLON CA SCREENING 1967 CT COLONOGRAPHY - COLON CA SCREENING 1967 FIT - COLON CA SCREENING 1967 FLEX SIG - COLON CA SCREENING 1967 LIPID TESTING 1967 MAMMOGRAM 1967 HIV SCREENING 1982 HEPATITIS C SCREENING 01/18/1985 DTAP/TDAP/TD VACCINES (1 - Tdap) 1986 HEPATITIS B VACCINE (1 of 3 - 19+ 3-dose series) 1986 PAP SMEAR 01/24/1988 PNEUMOCOCCAL VACCINE 50+ (1 of 1 - PCV) 2017 ZOSTER VACCINE (1 of 2) 2017 COLOGUARD (AGES 45-75) - COLON CA SCREENING 12/31/2022 01/01/2020 Colorectal Cancer Screening 12/31/2022 SCREENING FOR DIABETES 01/15/2023 DEPRESSION SCREENING 03/26/2024 COVID-19 VACCINE ( season) 2024 03/01/2021, 06/05/2020, 05/08/2020 INFLUENZA VACCINE (#1) 2024 2, 12/26/2019, 01/09/2016, Additional history exists HIB VACCINE Aged Out No longer eligi ble based on patient's age to complete this topic HPV VACCINE Aged Out No longer eligi ble based on patient's age to complete this topic MENINGOCOCCAL (Group B) VACCINE SHARED DECISION-MAKING Aged Out No longer eligible based on patient's age to complete this topic MENINGOCOCCAL GROUPS A/C/Y/W VACCINE Aged Out No longer eligible based on patient's age to complete this [place] [id number] [place] [address] Care Teams Foreign Language Instructor Relationship Specialty Start Date End Date Mojgan Rick PA [address] [place] [address] [place] [id number] PCP - General Physician 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
== END 2025-01-05 14:01 | disposition home or self-care (01) ==
LOC: CHSIMG 14:00
PROVIDERS: PCP Physician Assistant; Visit Provider Obstetrics & Gynecology Gynecology
DX: Z12.31 Encounter for screening mammogram for malignant neoplasm of breast (principal)
CPT/HCPCS: 77063; 77067